=== PATIENT | female | born 1940 | race Caucasian/White ===

== ENCOUNTER → 2022-05-20 12:27 | Outpatient (CLI) | payer MEDICARE, SELFPAY ==
[2022-05-20 14:02] LABS: Add Manual Diff / Slide Review NO; Basophils Absolute Auto 0 /uL (0-100); Basophils Percent Auto 0.7 % (0-2); Eosinophils Absolute Auto 100 /uL (0-450); Hematocrit 40.1 % (36-46); Hemoglobin 12.9 g/dL (12.0-16.0); Lymphocytes Absolute Auto 1400 /uL (1100-4500); Lymphocytes Percent Auto 29.1 % (25-40); Mean Corpuscular HGB Conc 32.2 % (30-36); Mean Corpuscular Hemoglobin 29.6 PG (26-34); Mean Corpuscular Volume 91.9 fL (80-100); Monocytes Absolute Auto 400 /uL (0-900); Monocytes Percent Auto 8.7 % (3-14); Neutrophils Absolute Auto 2900 /uL (1500-7000); Neutrophils Percent Auto 59.5 % (50-75); Platelet Count 192 X10^3/uL (150-400); Red Blood Cell Count 4.36 X10^6/uL (4.0-5.2); Red Cell Distribution Width 13.7 % (11.6-14.8); White Blood Cell Count 4.9 X10^3/uL (4.5-11.0)
[2022-05-20 14:04] LABS: Appearance Urine UA CLEAR; Bilirubin Urine UA NEGATIVE (NEGATIVE); Color Urine UA YELLOW; Glucose Urine UA NEGATIVE (Negative); Ketones Urine UA NEGATIVE (NEGATIVE); Leukocyte Esterase Urine UA NEGATIVE (NEGATIVE); Nitrite Urine UA NEGATIVE (Negative); Occult Blood Urine UA NEGATIVE (Negative); Protein Urine UA NEGATIVE (Negative); Specific Gravity Urine UA <=1.005 (1.000-1.035); Urobilinogen Urine UA 0.2 E.U./dL (0.2)
[2022-05-20 14:10] LABS: Bacteria Urine None Seen; Culture Indicated Urine Cult Not Indicated; RBC Urine None Seen (0-5/HPF); Urine Comments Microscopic Normal; WBC Urine None Seen (0-5/HPF)
[2022-05-20 14:11] LABS: Hemoglobin A1C% w Est Avg Glu 5.7 % (4.0-6.0)
[2022-05-20 14:15] LABS: BUN Creatinine Ratio 31.9 (6-22); Blood Urea Nitrogen 15 mg/dL (7-17); Calcium 8.9 mg/dL (8.4-10.2); Carbon Dioxide 26 mmol/L (22-32); Chloride 105 mmol/L (98-107); Estimated Glomerular Filt Rate > 60 mL/min (>60); Glucose 81 mg/dL (80-110); HEMOLYSIS < 15 (0-50); Sodium 140 mmol/L (137-145)
== END ==
PROVIDERS: Family Provider Internal Medicine; PCP Internal Medicine; Referring Provider Orthopaedic Surgery; Visit Provider Orthopaedic Surgery
DX: Z01.818 Encounter for other preprocedural examination (principal); R73.9 Hyperglycemia, unspecified; Z01.812 Encounter for preprocedural laboratory examination; N39.0 Urinary tract infection, site not specified
CPT/HCPCS: 36415; 80048; 81001; 83036; 85025; 93005

== ENCOUNTER 2022-06-28 08:46 | Day surgery (SDC) | payer MEDICARE, SELFPAY ==
[2022-06-20 09:35] VITALS: BMI 19.3
[2022-06-28] VITALS (10 sets, daily range): BP systolic 99–156; BP diastolic 56–80; PULSE 55–67; RESP 14–20; TEMP 35.8–36.4; O2SAT 95–99; BMI 19.3
--- NOTE | 2022-06-28 | DI.RAD.S_ITS ---
PROCEDURE: [id number] W PEL IF PERFORMED INDICATIONS: LEFT ANTERIOR HIP TECHNIQUE: Multiple spot fluoroscopic intraoperative images of the left hip. COMPARISON: [facility], CR, XR HIP W PEL IF DONE LT 2V, 06/28/2022, 13:14. [facility] [place], CR, XR PELVIS WITH LATERAL HIP LEFT, 03/09/2022, 14:53. FINDINGS: Spot fluoroscopic intraoperative images demonstrate changes from a left total hip arthroplasty with hardware components in expected positions. Degenerative changes are partially imaged in the right hip. IMPRESSION: Intraoperative images demonstrate a left total hip arthroplasty with hardware components in expected positions. Approved by: Alphonso Rubalcava M.D. on 06/29/2022 at 10:27
--- NOTE | 2022-06-28 | DI.RAD.S_ITS ---
PROCEDURE: XR HIP W PEL IF DONE LT 2V INDICATIONS: LEFT ANTERIOR HIP TECHNIQUE: AP pelvis and lateral view of the left hip acquired. COMPARISON: [facility] [place], CR, XR PELVIS WITH LATERAL HIP LEFT, 03/09/2022, 14:53. [facility], [place], [id number] W PEL IF PERFORMED, 06/28/2022, 12:03. FINDINGS: Bones: Patient is status post left total hip arthroplasty, with hardware components in expected positions. The hip joint appears congruent. The visualized bony structures appear intact. Degenerative changes are seen in the right hip and included lumbar spine. There is generalized osteopenia. Soft tissues: Overlying postoperative changes are noted. No suspicious soft tissue densities. IMPRESSION: Status post left total hip arthroplasty with expected postoperative findings. Approved by: Alphonso Rubalcava M.D. on 06/28/2022 at 15:45
[2022-06-28 09:16] LABS: COVID19 -Nasal RAPID Negative (Negative)
[2022-06-28] MEDS: ACETAMINOPHEN 325 MG TABLET 975 MG PO (09:44)
[2022-06-28] MEDS: LACTATED RINGERS 1,000 ML 42 ML IV ×2 (09:44→12:37)
[2022-06-28] MEDS: CELECOXIB 200 MG CAPSULE PO (09:46)
[2022-06-28] MEDS: PREGABALIN 75 MG CAPSULE PO (09:47)
[2022-06-28] MEDS: VANCOMYCIN 1,000 MG/200 ML PIGGYBACK 200 MG IV (10:04)
--- NOTE | 2022-06-28 10:39 | PM.PREOP ---
Pre-operative Note COVID-19 COVID-19 status: Negative Interval Note History & Physical reviewed/Exam performed by Physician: Yes Changes to H&P: No
[2022-06-28] MEDS: CEFAZOLIN 2 GM/100 ML PREMIX 100 ML IV ×2 (11:12→19:14)
[2022-06-28] MEDS: TRANEXAMIC ACID 1,000 MG VIAL 1000 MG INJ ×2 (11:25→12:51)
--- NOTE | 2022-06-28 11:31 | SUR.OPER ---
Supine on padded [place] table with bilateral legs secured in padded positioning boots and suspended in positioning spars, operative leg in traction per surgeon. Head on one pillow. Arm on non-operative side secured on padded armboard <90 degrees abduction. Arm on operative side padded and resting across chest then secured with tape over sheet. Padded perineal post in place per surgeon.
[2022-06-28] MEDS: BUPIVACAINE LIPOSOME 266 MG/20 ML VIAL INJ (11:38)
[2022-06-28] MEDS: BUPIVACAINE 0.5% (PF) 10 ML VIAL INJ (11:41)
[2022-06-28] MEDS: BUPIVACAINE 0.25% (PF) 60 ML, EPINEPHrine 0.3 MG INJ (11:41)
--- NOTE | 2022-06-28 13:29 | SUR.PHASEI ---
pt reports no pain, declines po medication at this time
--- NOTE | 2022-06-28 13:53 | PM.OP.1 ---
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 Non-operative management has failed and the patient has requested total hip replacement. The risks, benefits and alternatives to surgery were discussed with the patient prior to proceeding. Risks discussed included, but were not limited to, failure to relieve pain, leg length discrepancy, dislocation, stiffness, infection, nerve damage, deep venous thrombosis, pulmonary embolism, stroke, coma, heart attack, permanent paralysis and , as well as the potential need for eventual revision of the prosthetic. Surgeon: Patria Gonzales Service Writer Advisor: Cruz Calderon Anesthesia Type: Spinal Operative Notes Findings: Severe left hip osteoarthritis, adequate bone and stability Closure Type: primary Specimen(s): none sent Prosthetic devices, grafts, tissues, transplants, or devices: Gonzales [employer] Nephew 54 mm R3, neutral poly liner, size 8 standard offset anthology, 36 x -3 cobalt chrome head,one 6.5 mm screw Estimated Blood Loss (mL): 200 Blood products transfused: none Procedure in detail: The patient was brought to the operating room. Patient was carefully positioned in the supine position. Time-out was performed and antibiotics were given. Anesthesia was induced. She was positioned in the on the table in order to allow hyperextension of the hip. The [] lower extremity was prepped and draped in a standard sterile fashion. An anterior left hip incision was made 1 fingerbreadth lateral to the anterior superior iliac spine and extended distally towards the greater trochanter. Dissection was carried out through skin and subcutaneous tissues. Superficial hemostasis was achieved. The fascia over the tensor fascia flor was defined and incised with a knife. Two Allis clamps were used to grasp the fascia. Tensor fascia flor was retracted laterally. A gelpi retractor was placed. Dissection was carried out down along the neck. The circumflex vessels were carefully identified and cauterized with the Aqua Mantis. There was good visualization of the femoral neck. A Cobra was placed superior to the neck and the gluteus fibers were carefully stripped from that superior aspect of the capsule. A 2nd retractor was placed along the inferior aspect of the neck. The rectus insertion along the capsule was partially released. A 3rd retractor that was then gently placed over the rim of the acetabulum under the rectus. Capsule was carefully incised and released from the intertrochanteric line circumferentially superior to the mid sagittal line and inferiorly to the mid sagittal line until the lesser trochanter was palpable. A tag stitch was placed both in the superior and inferior limb of the capsular insertion. Along the acetabulum capsule was also released up to the mid sagittal 12:00 position. A portion of the labrum was resected. A saw was used to perform an osteotomy at the level of the intertrochanteric line and the junction of the superior femoral neck leaving approximately 1 finger breath of residual inferior neck above the lesser trochanter. A 2nd cut was made along the femoral neck at the base of the head and a napkin ring of neck was removed. Corkscrew was placed in the femoral head and the head was removed without difficulty. Retractors were then repositioned around the acetabulum. Residual labrum was resected and additional osteophytes were removed. A reamer that was 4 mm below the templated size was placed by hand in the acetabulum and it was reamed to centralize the acetabulum. It was then reamed up to 2 under the templated size and fluoroscopy was brought in to confirm the position of the reaming and depth of reaming. I reamed 1 under the anticipated size. A trial cup was placed and noted that it was appropriately sized and fluoroscopy confirmed position and depth. The component was open and inserted without difficulty fluoroscopic imaging was used to confirm that the cup had been adequately seated and was well positioned. It was further stabilized with a single screw. Neutral poly liner was placed. The cup was tested and noted to be stable. Attention was then directed to the femur. The femur was gently hyperextended additional capsular release was performed as needed in order to allow adequate visualization of the proximal femur with elevation of the femur. Patient was placed in a hyperextended slightly adducted position with maximum external rotation. Box osteotome was used to check for any residual neck as well as sclerotic bone along the trochanter. Durant pepper was placed in the femur. Additional broaching was performed. Canal finder was used to determine the alignment of the canal and position. Size 1 broach was placed. The canal was then appropriately broached up to the templated size as long as there was adequate stability of the broach and serial advancement of the broach without excessive impingement. Specific attention was directed at avoiding varus attempting to direct the distal aspect of the broach more anteriorly and avoiding excessive anteversion. Trial reduction showed acceptable range of motion, good stability, no posterior impingement, advent of leg length and appropriate lateral shuck. I also hyperflexed the hip and checked that there was no impingement anteriorly and there was good stability with flexion, adduction and internal rotation. Marcaine and Exparel were injected. The stem was placed without difficulty. Repeat trial reduction and x-ray showed acceptable overall position, length, and no evidence of the femoral fracture. Final head was placed. Wound was meticulously irrigated with normal saline. The hip was reduced and additional Exparel and Marcaine were injected. The capsule was closed with interrupted nonabsorbable sutures. The fascia of the tensor was closed with interrupted and running Vicryl. No drain was placed. Any tensor fascia flor muscle that appeared to be contused or injured which was a minimal amount was carefully resected. Capsule around the tensor was injected with Exparel and Marcaine. The skin was closed with barbed stitches for the subcutaneous tissue and skin. We also used surgical glue. The wound was dressed sterilely. Brief Betadine soak was also used and was meticulously irrigated with normal saline. Patient was transferred to recovery room in satisfactory condition. Complications: none Post-operative Condition: stable Disposition: Acute Care Plan for aftercare: The patient will be maintained on a standard total hip replacement protocol with weight bearing as tolerated and anterior hip precautions. The patient will receive Aspirin and sequential compression devices for DVT prophylaxis. The patient will be discharged home when safe for the home environment.
[2022-06-28] MEDS: IBUPROFEN 400 MG TABLET PO ×3 (14:40→21:54)
[2022-06-28] MEDS: ACETAMINOPHEN 325 MG TABLET 650 MG PO ×2 (14:41→20:44)
[2022-06-28] MEDS: LACTATED RINGERS 1,000 ML 100 ML IV (14:43)
--- NOTE | 2022-06-28 17:28 | PT.IIE ---
Current Diagnoses Unilateral primary osteoarthritis, left hip (06/28/22) Surgery Performed Operation Date: 06/28/22 10:45 Actual Procedures p Total Hip Arthroplasty/Anterior Approach(Left) - Patria Gonzales MD Surgical History (Last Updated 06/20/22 @ 10:14 by Vandana Sánchez, RN) History of Freddie fundoplication History of surgery (04/2022) History of total left knee replacement History of total right knee replacement Hx of bilateral cataract extraction Hx of colonoscopy Hx of plastic surgery Hx of tonsillectomy Medical History (Last Updated 06/20/22 @ 10:14 by Vandana Sánchez, RN) Asthma Difficult intravenous access Easy bruisability GERD (gastroesophageal reflux disease) Hearing impaired History of Mohs micrographic surgery for skin cancer Osteoarthritis Skin cancer Physical Therapy Inpatient Evaluation/Re-Eval M1 PT/OT-IP Prior Functional Status Start: 06/28/22 15:29 Freq: NEEDED Status: Active Protocol: Document 06/28/22 16:54 LRN (Rec: 06/28/22 17:27 LRN [id number]) Medical Review Prior Functional Status Medical History Reviewed Yes Mobility and Gait Independent ambulator without assistive device. Activities of Daily Living and IADL's Independent. Social History Household Members spouse Living Arrangements House Number of Floors (Floors) One Floor Number of Stairs To Enter/Railing? 2 Home Environment Standard Height Toilet,Tub/ Shower Home Equipment Front Wheel Walker,Raised Toilet Seat w/Armrests,Shower Seat without Backrest,Grab Bars In Shower Employment Status Retired M2 PT-IP Current Condition Start: 06/28/22 15:29 Freq: NEEDED Status: Active Protocol: Document 06/28/22 16:54 LRN (Rec: 06/28/22 17:27 LRN [id number]) Physical Therapy Current Condition Current Condition Evaluation Date 06/28/22 Treatment Diagnosis s/p L anterior JENNIFER, gait and mobility dysfunction. Onset Date 06/28/22 M3 PT-IP Subjective Start: 06/28/22 15:29 Freq: NEEDED Status: Active Protocol: Document 06/28/22 16:54 LRN (Rec: 06/28/22 17:27 LRN [id number]) Subjective Physical Therapy Visit Type Type Initial Evaluation Visit Start Time 15:30 Visit Stop Time 16:30 Total Visit Minutes 60 Notes 1 Physical Therapy Visit Comments Patient Comments Would like her daughter and spouse to be instructed how they can help her. Patient Goals Pt goal is to go home. Therapy Pain Assessment Pain When Pain Assessed At Rest Pain Present Pain Present Pain Reported Location Left Hip Intensity 2 Scale Used Numeric (0 - 10) Description Aching M4 PT-IP Mobility and Gait Start: 06/28/22 15:29 Freq: NEEDED Status: Active Protocol: Document 06/28/22 16:54 LRN (Rec: 06/28/22 17:27 LRN [id number]) PT-Bed Mobility Assessment Supine to Sit Supine to Sit Contact Guard Assistance, Minimal Assistance Sit to Supine Sit to Supine Contact Guard Assistance, Minimal Assistance Scooting Scooting to Edge of Bed Standby Assistance,Contact Guard Assistance PT-Transfer Assessment Sit to and From Stand Sit to and from Stand Standby Assistance Equipment Transfer Assistive Device Gait Belt,Front Wheeled Walker Orthotic/Prosthetic Devices or Brace: No Transfers Transfer Destination Bed Transfer Technique Walk to and from bed Transfer Ability Level of Assist Standby Assistance,Contact Guard Assistance Comments Mobility Comments Pt needed cuing for hand placement on stable surface with sit<>stand. Gait Assessment Gait Gait Assistance Required: Independent,Standby Assistance Distance (Feet) 100 Able to Maintain Weight Bearing Status Yes During Gait Assistive Devices Assistive Device Gait Belt,Front Wheeled Walker Orthotic/Prosthetic Devices or Brace: No Gait Deviations General Gait Pattern Decreased Stride Length,Step- to Gait Factors Limiting Gait Function Factors Limiting Gait Function Decreased Activity Tolerance, Decreased Strength,Limited Range of Motion,Pain,Poor Balance Comments Gait Comments Pt is safe with SBA> independent w/gait using a FWW , and step to gait. Pt was able to perform proper gait pattern after training. Pain limits WBing o the LLE; therefore she has decreased balance and need for FWW with gait. Stair Climbing Assessment Evaluation Level of Assist On Stairs Independent,Standby Assistance ,1 Person Assistance Devices Stair Climbing Assistive Devices Left Railing,Right Railing Technique/Endurance Stair Climbing Direction Ascend and Descend Stair Climbing Technique Step to Step Number of Steps Climbed 3 Query Text: Stair Climbing Set # Repetitions (reps) 1 Comments Stair Climbing Comments Pt was able to independently ambulate 3 steps after education and training with a step to gait safely when using 2 rails, which pt will have at do at home. She demonstrated good knowledge of her precautions during stair ambulation. Pt would like family to know how they can help with stair ambulation of SBA. PT-Balance Assessment Sitting Balance and Reactions Static Sitting Balance Ability Good Dynamic Sitting Balance Ability Good Standing Balance and Reactions Static Standing Balance Ability Good Dynamic Standing Balance Ability Good Device Used FWW M5 PT-IP Objective Assessments Start: 06/28/22 15:29 Freq: NEEDED Status: Active Protocol: Document 06/28/22 16:54 LRN (Rec: 06/28/22 17:27 LRN [id number]) Orientation Orientation/Cognition Level of Alertness Alert Orientation Name,Month,Date,Year,Place, Situation Language Function Ability No Deficits Noted Safety Awareness Understands Safety Issues Memory Description No Deficits Noted Gross Range of Motion Upper Extremity ROM Assessment Within Functional Limits Lower Extremity ROM Assessment Within Functional Limits Strength Upper Extremity Strength Assessment Within Functional Limits Lower Extremity Strength Assessment Left Impaired Comments Strength Comments L hip strength is generally 2+ /5, otherwise LLE strength is generally 4+/5. M6 PT-IP Treatment Start: 06/28/22 15:29 Freq: NEEDED Status: Active Protocol: Document 06/28/22 16:54 LRN (Rec: 06/28/22 17:27 LRN [id number]) Physical Therapy Treatment Exercises Exercises Ankle Pumps,Gluteal Sets,Quad Sets,Heel Slides Education Education Provided Precautions,Weight Bearing Status,Post-Op Packet Other Treatments Other Treatment Performed Reviewed L anterior JENNIFER precautions with pt able to recall 1/2 (no hip ER). Pt did not recall no L LE hyperextension, but was able to recall and show with gait and stair mechanics adherence to precautions of movement for the LLE. Pt tolerated LE ex' s very well with report of the leg feeling better with exercise. Gait and stair ambulation training. The pt was returned to bed after treatment with head elevated and tray table and call light placed within reach . Vitals taken: sup: BP 115/60, HR 78, SpO2 99% sitting: BP 137/65, HR 87, SpO2 96% after walking: BP 120/60, HR 80, SpO2 97% M7 PT-IP Assessment and Plan Start: 06/28/22 15:29 Freq: NEEDED Status: Active Protocol: Document 06/28/22 16:54 LRN (Rec: 06/28/22 17:27 LRN [id number]) PT Summary Assessment and Plan Potential Rehabilitation Potential Excellent Status of Condition at Evaluation Evolving Summary Impairments ROM,Strength,Balance,Bed Mobility,Transfers,Gait, Activity Tolerance Assessment Summary Pt is an 82 year old female same day post op L anterior JENNIFER. Pt was able to get out of bed with CG>min assit and cuing. She required SBA>CGA for sit<>stand and gait with SBA>CGA. She was able to walk 100' with minimal increase in pain, but c/o soreness in L anterior thigh with gait WBAT. She was able to ambulate stairs mostly independently, but should have SBA of family on discharge. The pt is safe to go home with assist of family for transfer and gait, but would like training on how to don socks/shoes and would benefit from training of her caregivers that will be home with her as she recovers. Goals Bed Mobility Goal Independent,Standby Assistance Transfer Goal Standby Assistance Gait Goal Independent Gait Distance 100 Other Goals 1) Pt able to recall 2/2 precautions. 2) Pt family/caregivers with be educated in how best to assist pt (SBA>CGA) with transfers and gait and with guarding with stair ambulation . 3) She would benefit from discussion on putting socks/ shoes on with use of sock aid if wanting to be independent. Days to Meet Goals 1 Frequency of Treatment Frequency Of Treatment Twice a Day Treatment Plan Physical Therapy Treatment Plan Bed Mobility Training,Transfer Training,Gait Training Precautions Anterior Hip Precautions No Hip Extension,No Hip External Rotation Weight Bearing Status Weight Bearing Status Weight Bear as Tolerated Recommendations To Nursing Amount of Assist Needed Standby Assistance,1 Person Assist Discharge Recommendations PT Discharge Recommendations Home with Assistance Transportation Needs at Discharge Private Vehicle
[2022-06-28] MEDS: [UNRECOGNIZED DRUG - OTHER] INH (20:44)
[2022-06-28] MEDS: TRIAMCINOLONE ACETONIDE 55 MCG 2 EACH NASAL (20:44)
[2022-06-28] MEDS: DOCUSATE 100 MG CAPSULE PO (20:44)
[2022-06-28] MEDS: ASPIRIN EC 81 MG TABLET PO (20:44)
[2022-06-28] MEDS: BECLOMETHASONE DIPROPIONATE INH (20:44)
[2022-06-29 00:40] VITALS: BP 98/52; PULSE 69; RESP 16; TEMP 36.4; O2SAT 97
[2022-06-29] MEDS: ACETAMINOPHEN 325 MG TABLET 650 MG PO ×2 (02:42→09:07)
[2022-06-29] MEDS: CEFAZOLIN 2 GM/100 ML PREMIX 100 ML IV (02:42)
[2022-06-29] MEDS: IBUPROFEN 400 MG TABLET PO ×2 (02:42→09:07)
[2022-06-29 03:12] VITALS: BP 103/62; PULSE 58; RESP 17; TEMP 36; O2SAT 96
[2022-06-29 05:24] LABS: Hematocrit 33.9 % (36-46); Hemoglobin 11.3 g/dL (12.0-16.0)
--- NOTE | 2022-06-29 07:55 | P.DS_ITS ---
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 Non-operative management has failed and the patient has requested total hip replacement. The risks, benefits and alternatives to surgery were discussed with the patient prior to proceeding. Risks discussed included, but were not limited to, failure to relieve pain, leg length discrepancy, dislocation, stiffness, infection, nerve damage, deep venous thrombosis, pulmonary embolism, stroke, coma, heart attack, permanent paralysis and , as well as the potential need for eventual revision of the prosthetic. Surgeon: Patria Gonzales Sales And Marketing Administrator: Cruz Calderon Anesthesia Type: Spinal Operative Notes Findings: Severe left hip osteoarthritis, adequate bone and stability Closure Type: primary Specimen(s): none sent Prosthetic devices, grafts, tissues, transplants, or devices: Gonzales and Nephew 54 mm R3, neutral poly liner, size 8 standard offset anthology, 36 x -3 cobalt chrome head,one 6.5 mm screw Estimated Blood Loss (mL): 200 Blood products transfused: none Discharge Providers Provider Discharge Date: 06/29/22 Primary care physician: Analilia Murray MD Consults: 06/28/22 07:28 Consult to Anesthesiology Routine Comment: Consulting Provider: Anesthesiologist Reason for consultation: Regional block for post operative pain control 06/28/22 14:03 Consult to Discharge Planning Routine Comment: Consult to Physical Therapy Evaluate & Treat Comment: Physician Instructions: post op JENNIFER protocol Discharge provider: Louisa Starr PA-C Summary Hospital Course Discharge Diagnosis: Left hip osteoarthritis w/ protrusio, s/p left total hip arthroplasty Hospital Course: Ms Noonan's hospital course was unremarkable. On POD# 1, she was feeling well and wanted to go home. She was eating and voiding without difficulty and her pain was well-controlled with oral medication. She was evaluated by PT and felt to be safe for discharge home. Exam Vital Signs (past 8 hours): - 06/29/22 00:40 06/29/22 03:12 Temperature 97.5 F L 96.8 F L Pulse Rate 69 58 L Respiratory Rate 16 17 Blood Pressure 98/52 L 103/62 Pulse Oximetry 97 96 Oxygen Flow Rate 0 0 Oxygen Delivery Method Room Air Oxygen Flow Rate 0 Narrative Exam Narrative: 5/5 strength in hip flexors, quadriceps, hamstrings, DF, PF, EHL on the left. Sensation to light touch intact throughout LLE. Calves soft, compressible, nontender and without palpable cords or masses. Aquacel dressing CDI. Objective Labs 06/29/22 04:20 Labs: Laboratory Results - last 24 hr 06/28/22 06/29/22 08:52 04:20 Hgb 11.3 L Hct 33.9 L SARS-CoV-2 (PCR) Negative PFSH Medical History (Updated 06/20/22 @ 10:14 by Vandana Sánchez RN) Asthma Difficult intravenous access Easy bruisability GERD (gastroesophageal reflux disease) Hearing impaired History of Mohs micrographic surgery for skin cancer Osteoarthritis Skin cancer Surgical History (Updated 06/20/22 @ 10:14 by Vandana Sánchez RN) History of Freddie fundoplication History of surgery (04/2022) History of total left knee replacement History of total right knee replacement Hx of bilateral cataract extraction Hx of colonoscopy Hx of plastic surgery Hx of tonsillectomy Social History household members: spouse Smoking Status: Former smoker alcohol intake: never Discharge Assessment & Plan Assessment and Plan Assessment: Left hip osteoarthritis w/ protrusio, s/p left total hip arthroplasty Plan of Treatment: Discharge home. Pt has all post-op meds, including APAP, IBPN, and oxycodone. ASA 81mg BID x 6 weeks for VTE prophylaxis. Outpt PT, f/u in office in 2 weeks. Discharge Plan Discharge Plan Patient Disposition: Home Discharge orders & Medications Discharge Orders: Discharge (Order); Ordered 06/29/22 Ordered By: Louisa Starr Prescriptions: Continued triamcinolone acetonide [Nasacort] 55 mcg Aerosol,[place] 2 spray INTRANASAL BID Qvar RediHaler 80 mcg/actuation Hfa Aerosol Breath Activated 2 inh INHALATION BID Follow up/Referrals: Analilia Murray MD [Primary Care Provider] - Patria Gonzales MD [Physician] - As previously scheduled (Follow up w/ Louisa Starr PA-C, on 07/08/2022 @ 1:30 pm at [facility] office in [place].) Diet/Activity/Treatments Diet: Diet as Tolerated Activity: Weightbearing as tolerated to left hip. Anterior hip precautions. Cold/Heat Therapy: Ice to hip as needed for pain. Skin/Wound/Dressing Care Report to your healthcare provider any signs of infection, such as:: chills, fever, night sweats, unusual drainage and unusual redness Dressing: May shower. Leave Aquacel dressing in place until follow up in office. No bathing or otherwise soaking incision. Call the office if the dressing becomes saturated inside. Visit Report/Discharge Packet Instructions: DI for Hip Replacement Stand Alone Forms: Patient Portal/API, Surgery Discharge Discharge Data Primary Care Provider: Analilia Murray Attending Provider: Patria Gonzales
[2022-06-29 08:08] VITALS: BP 98/52; PULSE 60; RESP 16; TEMP 36.6; O2SAT 96
[2022-06-29] MEDS: [UNRECOGNIZED DRUG - OTHER] INH (09:04)
[2022-06-29] MEDS: BECLOMETHASONE DIPROPIONATE INH (09:04)
[2022-06-29] MEDS: TRIAMCINOLONE ACETONIDE 55 MCG 2 EACH NASAL (09:05)
[2022-06-29] MEDS: DOCUSATE 100 MG CAPSULE PO (09:08)
[2022-06-29] MEDS: ASPIRIN EC 81 MG TABLET PO (09:08)
--- NOTE | 2022-06-29 11:35 | PT.IPTN ---
Current Diagnoses Unilateral primary osteoarthritis, left hip (06/28/22) Surgery Performed Operation Date: 06/28/22 10:45 Actual Procedures p Total Hip Arthroplasty/Anterior Approach(Left) - Patria Gonzales MD Physical Therapy Treatment Note M2 PT-IP Current Condition Start: 06/28/22 15:29 Freq: NEEDED Status: Discharge Protocol: Document 06/28/22 16:54 LRN (Rec: 06/28/22 17:27 LRN [id number]) Physical Therapy Current Condition Current Condition Evaluation Date 06/28/22 Treatment Diagnosis s/p L anterior JENNIFER, gait and mobility dysfunction. Onset Date 06/28/22 M3 PT-IP Subjective Start: 06/28/22 15:29 Freq: NEEDED Status: Discharge Protocol: Document 06/29/22 13:49 SW (Rec: 06/29/22 14:36 SW [id number]) Subjective Physical Therapy Visit Type Type Treatment Note Visit Start Time 11:35 Visit Stop Time 11:59 Total Visit Minutes 24 Number of INTRANET SUPPORT Visits 1 Physical Therapy Visit Comments Patient Comments Patient reports feeling well today, with minimal discomfort . Outpatient PT appointment scheduled for next week. Patient Goals Pt goal is to go home. Therapy Pain Assessment Pain Present Pain Present Denied Pain M4 PT-IP Mobility and Gait Start: 06/28/22 15:29 Freq: NEEDED Status: Discharge Protocol: Document 06/29/22 13:49 SW (Rec: 06/29/22 14:36 SW [id number]) PT-Transfer Assessment Sit to and From Stand Sit to and from Stand Standby Assistance Equipment Transfer Assistive Device Gait Belt,Front Wheeled Walker Orthotic/Prosthetic Devices or Brace: No Comments Mobility Comments Pt. agreeable to PT session. Sitting EOB w/spouse and daughter present. Slightly impulsive while moving. Recalled 2/2 precautions. Ambulated with FWW ~300ft, VC to maintain a safe speed and for heel to toe steps, SBA. Ascended/descended stairs x3 with good adherance to precautions, bilateral handrails, SBA. Stand to sit VC to ensure sitting surface is within a safe distance and for eccentric control, SBA. Transferred to/from toilet, SBA. Gait Assessment Gait Gait Assistance Required: Independent,Standby Assistance Distance (Feet) 300 Able to Maintain Weight Bearing Status Yes During Gait Assistive Devices Assistive Device Gait Belt,Front Wheeled Walker Orthotic/Prosthetic Devices or Brace: No Gait Deviations General Gait Pattern Antalgic Factors Limiting Gait Function Factors Limiting Gait Function Pain Comments Gait Comments See mobility comments above. Stair Climbing Assessment Evaluation Level of Assist On Stairs Independent,Standby Assistance Devices Stair Climbing Assistive Devices Left Railing,Right Railing Technique/Endurance Stair Climbing Direction Ascend and Descend Stair Climbing Technique Step to Step Number of Steps Climbed 3 Stair Climbing Set # Repetitions (reps) 1 Comments Stair Climbing Comments See mobility comments above. PT-Balance Assessment Sitting Balance and Reactions Static Sitting Balance Ability Good Dynamic Sitting Balance Ability Good Standing Balance and Reactions Static Standing Balance Ability Good Dynamic Standing Balance Ability Good Device Used FWW M5 PT-IP Objective Assessments Start: 06/28/22 15:29 Freq: NEEDED Status: Discharge Protocol: Document 06/28/22 16:54 LRN (Rec: 06/28/22 17:27 LRN [id number]) Orientation Orientation/Cognition Level of Alertness Alert Orientation Name,Month,Date,Year,Place, Situation Language Function Ability No Deficits Noted Safety Awareness Understands Safety Issues Memory Description No Deficits Noted Gross Range of Motion Upper Extremity ROM Assessment Within Functional Limits Lower Extremity ROM Assessment Within Functional Limits Strength Upper Extremity Strength Assessment Within Functional Limits Lower Extremity Strength Assessment Left Impaired Comments Strength Comments L hip strength is generally 2+ /5, otherwise LLE strength is generally 4+/5. M6 PT-IP Treatment Start: 06/28/22 15:29 Freq: NEEDED Status: Discharge Protocol: Document 06/29/22 13:49 SW (Rec: 06/29/22 14:36 SW [id number]) Physical Therapy Treatment Education Education Provided Precautions,Weight Bearing Status,Post-Op Packet M7 PT-IP Assessment and Plan Start: 06/28/22 15:29 Freq: NEEDED Status: Discharge Protocol: Document 06/29/22 13:49 SW (Rec: 06/29/22 14:36 SW [id number]) PT Summary Assessment and Plan Potential Rehabilitation Potential Excellent Status of Condition at Evaluation Evolving Summary Impairments ROM,Strength,Balance,Bed Mobility,Transfers,Gait, Activity Tolerance Assessment Summary Pt. was able to progress ambulation distance today ~300 ft, SBA with min VC and denial of pain/fatigue. Educated patient, spouse, and daughter on precautions and stair ambulation assist. Patient able to recall 2/2 precautions. PT recommends home with assist. Goals Bed Mobility Goal Independent,Standby Assistance Transfer Goal Standby Assistance Gait Goal Independent Gait Distance 100 Other Goals 1) Pt able to recall 2/2 precautions. 2) Pt family/caregivers with be educated in how best to assist pt (SBA>CGA) with transfers and gait and with guarding with stair ambulation . 3) She would benefit from discussion on putting socks/ shoes on with use of sock aid if wanting to be independent. Days to Meet Goals 1 Frequency of Treatment Frequency Of Treatment Twice a Day Treatment Plan Physical Therapy Treatment Plan Bed Mobility Training,Transfer Training,Gait Training Precautions Anterior Hip Precautions No Hip Extension,No Hip External Rotation Weight Bearing Status Weight Bearing Status Weight Bear as Tolerated Recommendations To Nursing Amount of Assist Needed Standby Assistance Discharge Recommendations PT Discharge Recommendations Home with Assistance Transportation Needs at Discharge Private Vehicle
--- NOTE | 2022-06-29 12:54 | PC.NURSE ---
Day shift: Left unit at approx 1245 via WC. Taken to car by REKHA Mckeon. Pt's family is driving her home. No new MD scripts. Paperwork signed and all questions answered. Has all personal belongings. Dressing CDI. CMS intact and PPP. Pain has been well controlled per MAY.
== END 2022-06-29 12:55 | disposition home or self-care (01) ==
LOC: OR 08:48 → AC 08:48
PROVIDERS: Family Provider Internal Medicine; PCP Internal Medicine; Referring Provider Orthopaedic Surgery; Visit Provider Orthopaedic Surgery
PROC: (CPT 27130; principal; 2022-06-28 10:45)
DX: M16.12 Unilateral primary osteoarthritis, left hip (principal); Z20.822 Contact with and (suspected) exposure to COVID-19
CPT/HCPCS: 27130; 36415; 73502; 73503; 76000; 85014; 85018; 87635; 97110; 97116; 97162; 97530; C1776; C9803; C9290; J0171; J0690; J1100; J2405; J2704; J3010

== ENCOUNTER → 2022-07-04 15:02 | Outpatient (CLI) | payer MEDICARE, SELFPAY ==
[2022-06-28 16:49] VITALS: BMI 19.3
--- NOTE | 2022-07-04 | DI.US.S_ITS ---
PROCEDURE: US PERIPH VENOUS LOW EXTREM LT INDICATIONS: PAIN TECHNIQUE: Real-time imaging, as well as color and pulse Doppler interrogation, were performed of the lower extremity deep veins from the inguinal ligament to the popliteal fossa. COMPARISON: None. FINDINGS: The common femoral, femoral and popliteal veins are normally compressible, and free of intraluminal thrombus. Color and pulse Doppler demonstrate normal phasic intraluminal flow. There is normal augmentation response to distal compression maneuver. IMPRESSION: No deep venous thrombosis identified within the left lower extremity. Dictated by: Petey Zacarias [facility] Interpreted: Mike Disla MD on 07/04/2022 at 15:38 Transcribed by: RACQUEL on 07/04/2022 at 15:38 Approved by: Harsh Disla M.D. on 07/06/2022 at 16:22
== END ==
PROVIDERS: Family Provider Internal Medicine; PCP Internal Medicine; Referring Provider Physician Assistant; Visit Provider Physician Assistant
DX: M79.662 Pain in left lower leg (principal)
CPT/HCPCS: 93971

== ENCOUNTER → 2023-11-24 10:14 | Outpatient (CLI) | payer MEDICARE, SELFPAY ==
[2022-06-28 16:49] VITALS: BMI 19.3
--- NOTE | 2023-11-24 10:16 | DI.NM.S_ITS ---
PROCEDURE: NM BONE SCAN WHOLE BODY RADIOPHARMACEUTICAL: 22 mCi Tc-99m MDP IV. INDICATIONS: PAIN IN RT KNEE / LOOSENING OF TOTAL KNEE RIGHT TECHNIQUE: Delayed whole-body scintigrams were obtained approximately 3-4 hours after intravenous injection of radiotracer. Anterior and posterior views were acquired from vertex to feet. Additional left and right oblique views of the lower extremities were obtained. COMPARISON: [facility] Outside Film, US, US VENOUS LOWER EXTREMITY DOPPLER RIGHT, 09/07/2023, 17:42. [facility] Outside Film, MR, MR KNEE RIGHT WITHOUT CONTRAST, 10/17/2023, 14:07. [facility] [place], CR, XR KNEE 4+ VIEWS RIGHT, 03/22/2023, 13:48. FINDINGS: There is urinary excretion in bladder and kidneys. Suspected urinary contamination is seen below the pelvis. Upper and lower extremity degenerative changes are present. No suspicious focus of radiotracer activity. A focus of mild activity is seen at the left superior orbit, indeterminate. Moderate activity is seen around the right knee arthroplasty. Less significant activity is seen around the left knee arthroplasty. IMPRESSION: Moderate activity around the right knee arthroplasty, which is asymmetric, representing loosening or infection. Three-phase bone scan could further evaluate if clinically indicated. Mild nonspecific uptake is seen at the left superior orbit, correlate with any recent injury or other symptoms. Upper and lower extremity presumed periarticular uptake due to degenerative changes. Dictated by: Alfred Griffin M.D. on 11/24/2023 at 16:10 Approved by: Alfred Griffin M.D. on 11/24/2023 at 16:13
== END ==
PROVIDERS: Family Provider Internal Medicine; PCP Nurse Practitioner Family; Referring Provider Orthopaedic Surgery; Visit Provider Orthopaedic Surgery
DX: M25.561 Pain in right knee (principal); T84.032D Mechanical loosening of internal right knee prosthetic joint, subsequent encounter; Z96.651 Presence of right artificial knee joint
CPT/HCPCS: 78306; A9503